=== PATIENT | female | born 1975 | race Two or more races ===

== ENCOUNTER 2018-03-23 17:28 | Emergency (ER) | payer MEDICAID, OTHER ==
[~2018-03-23] VITALS: Ht 157.5 cm; Wt 95.3 kg
[2018-03-23 17:30] VITALS: BP 123/73
[2018-03-23 18:24] LABS: Basophils # (auto) 0.1 uL; Basophils % (auto) 1.1 % (0.0-2.0); Eosinophils # (auto) 0.1 uL; Eosinophils % (auto) 1.3 % (0.0-7.0); Hematocrit 35.8 % (36.0-46.0); Hemoglobin 12.1 g/dL (12.2-16.2); Lymphocytes # (auto) 1.4 uL; Lymphocytes % (auto) 22.1 % (10.0-50.0); Mean Corpuscular Hemoglobin 28.9 pg (28.0-32.0); Mean Corpuscular Hgb Conc. 33.7 g/dL (32.0-36.0); Mean Corpuscular Volume 85.9 fL (80.0-100.0); Monocytes # (auto) 0.6 uL; Monocytes % (auto) 9.5 % (0.0-12.0); Platelet Count (auto) 378 10^3/uL (140-450); Red Blood Cells 4.17 10^6/uL (4.0-5.20); Red Cell Distribution Width 15.1 % (11.8-14.3); White Blood Cell 6.1 10^3/uL (4.4-10.8)
[2018-03-23 18:41] LABS: Urine Amorphous Crystal MANY /hpf (None Seen); Urine Bacteria NONE SEEN /hpf (None Seen); Urine Blood Negative /uL (Negative); Urine Mucus FEW (None Seen); Urine Specific Gravity 1.017 (1.001-1.035)
[2018-03-23 18:43] LABS: Urine WBC 1 /hpf (0 - 5)
[2018-03-23 18:47] LABS: Albumin 3.8 g/dL (3.4-5.0); BUN/Creatinine Ratio 21.3; Bilirubin, Total 0.2 mg/dL (0.2-1.0); Calcium 8.5 mg/dL (8.5-10.1)
[2018-03-23 18:50] LABS: Potassium 2.7 mmol/L (3.5-5.1)
[2018-03-23 18:54] LABS: Alcohol, Urine < 3.0 mg/dL (0-5); Amphetamine Screen, Urine POSITIVE (NEGATIVE); Barbiturate Scree,Urine NEGATIVE (NEGATIVE); Benzodiazephine Screen, Urine NEGATIVE (NEGATIVE); Cannabinoid Screen, Urine POSITIVE (NEGATIVE); Cocaine Screen, Urine NEGATIVE (NEGATIVE); Opiate Scree,Urine NEGATIVE (NEGATIVE); Phencyclidine Screen, Urine NEGATIVE (NEGATIVE)
== END 2018-03-23 21:00 | disposition left against medical advice (07) ==
LOC: ER 17:28
DX: R53.1 Weakness (principal); Z53.21 Procedure and treatment not carried out due to patient leaving prior to being seen by health care provider
CPT/HCPCS: 36415; 80053; 80307; 81001; 81025; 85025; 93005

== ENCOUNTER 2019-07-04 16:01 | Inpatient (IN) | payer MEDICAID ==
[~2019-07-04] VITALS: Ht 157.5 cm; Wt 102.7 kg
[2019-07-04] MEDS ORDERED: SODIUM CHLORIDE 0.9% 1,000 ML IVB ONE (17:05)
[2019-07-04 17:34] LABS: Basophils # (auto) 0 uL; Basophils % (auto) 0.8 % (0.0-2.0); Eosinophils # (auto) 0.1 uL; Mean Corpuscular Volume 72.1 fL (80.0-100.0); Monocytes # (auto) 0.6 uL
[2019-07-04 17:36] LABS: Hematocrit 29.1 % (36.0-46.0); Hemoglobin 9.1 g/dL (12.2-16.2); Lymphocytes # (auto) 1.2 uL; Mean Corpuscular Hemoglobin 22.6 pg (28.0-32.0); Mean Corpuscular Hgb Conc. 31.3 g/dL (32.0-36.0); Neutrophils % (auto) 60.2 % (37.0-80.0); Nucleated Red Blood Cells % 0.1 %; Platelet Count (auto) 340 10^3/uL (140-450); Red Blood Cells 4.03 10^6/uL (4.0-5.20); Red Cell Distribution Width 18.1 % (11.8-14.3)
[2019-07-04 18:00] LABS: Alcohol, Urine < 3.0 mg/dL (0-5); Amphetamine Screen, Urine NEGATIVE (NEGATIVE); Barbiturate Scree,Urine NEGATIVE (NEGATIVE); Benzodiazephine Screen, Urine NEGATIVE (NEGATIVE); Cannabinoid Screen, Urine NEGATIVE (NEGATIVE); Cocaine Screen, Urine NEGATIVE (NEGATIVE); Opiate Scree,Urine NEGATIVE (NEGATIVE); Phencyclidine Screen, Urine NEGATIVE (NEGATIVE)
[2019-07-04 18:09] LABS: Albumin 3.7 g/dL (3.4-5.0); Anion Gap 7 (5-15); BUN/Creatinine Ratio 26.5; Blood Alcohol < 3.0 mg/dL (0-5); Blood Urea Nitrogen 18 mg/dL (7-18); Calcium 8.4 mg/dL (8.5-10.1); Carbon Dioxide 25 mmol/L (21-32); Chloride 108 mmol/L (98-107); GFR African American 120 mL/min; GFR Non-African American 99 mL/min; Glucose 95 mg/dL (74-106); Magnesium 2.2 mg/dL (1.6-2.6); Potassium 4.1 mmol/L (3.5-5.1); Sodium 140 mmol/L (136-145)
[2019-07-04 18:12] LABS: Alanine Aminotransferase 15 U/L (13-56); Alkaline Phosphatase 51 U/L (45-117); Aspartate Aminotransferase 10 U/L (15-37); Bilirubin, Total 0.2 mg/dL (0.2-1.0)
[2019-07-04 18:16] LABS: Urine Pregnacy Test Negative (Negative)
[2019-07-04] MEDS ORDERED: ACETAMINOPHEN 325 MG TAB PO ONE (19:45)
[2019-07-04] MEDS ORDERED: LEVETIRACETAM 500 MG TAB PO ONE (20:00)
[2019-07-04] MEDS ORDERED: ACETAMINOPHEN 325 MG TAB PO PRN (22:00)
[2019-07-04] MEDS ORDERED: ONDANSETRON HCL 4 MG/2 ML VIAL IV PRN (22:00)
[2019-07-04] MEDS ORDERED: DOCUSATE SOD 100 MG CAP PO PRN (22:00)
[2019-07-04] MEDS ORDERED: LORazepam 0.5 MG TAB PO PRN (22:00)
[2019-07-04] MEDS ORDERED: LEVETIRACETAM 500 MG/5ML INJ IV ONE (22:21)
[2019-07-04] MEDS: LEVETIRACETAM INJ 500 MG in D5W 5% 100 ML IV SCH (22:26)
[2019-07-05] VITALS (7 sets, daily range): BP systolic 104–144; BP diastolic 69–82
--- NOTE | 2019-07-05 00:20 | NUR ---
MS admit from ER ARCHIE RICHARDS admitted to MS unit. Patient oriented to Marleen Ramires RN primary RN, unit, room, bed, and unit policies regarding patient care and visiting hours. Patient weighed by bedscale and encouraged to call if they need something. All questions and concerns addressed, patient verbalized understanding. Pt alert x4, ambulatory, fall precautions and seizure precautions in place. No sob on room air, skin intact Note:
[2019-07-05] MEDS: HYDROcodone-ACET 5/325MG TAB PO PRN ×2 (00:54→21:06)
--- NOTE | 2019-07-05 00:54 | NUR ---
Pain Management Pt medicated for c/o right knee pain. Will continue to monitor
[2019-07-05] MEDS ORDERED: TRAZ100T2 PO (01:14)
[2019-07-05] MEDS ORDERED: TOPI50TA53 PO (01:14)
[2019-07-05] MEDS ORDERED: IBUP800T24 PO (01:14)
[2019-07-05] MEDS ORDERED: LEVE500T22 PO ×2 (01:14→23:08)
[2019-07-05] MEDS ORDERED: MELO1TAB56 PO (01:14)
--- NOTE | 2019-07-05 06:35 | NUR ---
Pt own meds taken down to pharmacy
--- NOTE | 2019-07-05 06:50 | NUR ---
Rounds Patient awake and alert x4. No S/S of distress/SOB or pain. Pt ambulated to restroom gait even and steady, encouraged to call for restroom assistance prn. Call light within reach
[2019-07-05 07:12] LABS: Basophils # (auto) 0 uL; Eosinophils # (auto) 0.1 uL; Hemoglobin 8.3 g/dL (12.2-16.2); Monocytes # (auto) 0.6 uL; Nucleated Red Blood Cells % 0.1 %
[2019-07-05 07:14] LABS: Basophils % (auto) 0.8 % (0.0-2.0); Eosinophils % (auto) 3.1 % (0.0-7.0); Hematocrit 26.6 % (36.0-46.0); Lymphocytes # (auto) 1.4 uL; Lymphocytes % (auto) 33.8 % (10.0-50.0); Mean Corpuscular Hemoglobin 22.4 pg (28.0-32.0); Mean Corpuscular Hgb Conc. 31.3 g/dL (32.0-36.0); Mean Corpuscular Volume 71.7 fL (80.0-100.0); Monocytes % (auto) 13.8 % (0.0-12.0); Neutrophils # (auto) 1.9 uL; Neutrophils % (auto) 48.5 % (37.0-80.0); Platelet Count (auto) 303 10^3/uL (140-450); Red Blood Cells 3.71 10^6/uL (4.0-5.20); Red Cell Distribution Width 17.8 % (11.8-14.3)
[2019-07-05 07:36] LABS: Potassium 4.1 mmol/L (3.5-5.1)
[2019-07-05 07:38] LABS: BUN/Creatinine Ratio 23.5
--- NOTE | 2019-07-05 07:50 | NUR ---
Opening Shift Note Assumed care of patient, awake and alert, sitting up in bed. No S/S of distress/SOB or pain. Instructed on POC and to call for assist PRN, will continue to monitor for changes Q1hr and PRN. Patient complained of being extremely hungry, apple juice and crackers given. Informed her that breakfast will be served in a few minutes.
[2019-07-05] MEDS: LEVETIRACETAM INJ 500 MG in D5W 5% 100 ML IV SCH ×2 (10:05→21:02)
[2019-07-05] MEDS ORDERED: traZODone HCL 50 MG TAB PO SCH (18:00)
--- NOTE | 2019-07-05 21:06 | NUR ---
Rounds Patient awake and alert x4, ambulatory. No S/S of distress/SOB on room air, c/o right knee pain, medicated as ordered. Will continue to monitor changes q1hr and PRN.
[2019-07-05] MEDS ORDERED: ESCI20TA51 (23:00)
[2019-07-05] MEDS ORDERED: TRAZ50TA2 PO (23:04)
[2019-07-05] MEDS ORDERED: ESCI20TA PO (23:14)
--- NOTE | 2019-07-05 23:15 | NUR ---
Rounds Patient walking to station, upset she spoke to Dr.L Hancock, this nurse not present. States rude to her and questioned her regarding her homeless status, felt offended. Will notify [facility]. Order received for d/c tomorrow after clearance from [facility] after neuro consult complete and clinical social work aide consult.
[2019-07-06] MEDS: HYDROcodone-ACET 5/325MG TAB PO PRN ×2 (02:41→10:08)
--- NOTE | 2019-07-06 02:41 | NUR ---
Rounds Patient awake and alert x4. No S/S of distress/SOB, medicated for knee pain. Will continue to monitor changes q1hr and PRN.
[2019-07-06 05:00] VITALS: BP 146/91
--- NOTE | 2019-07-06 07:30 | NUR ---
Opening Note Assumed pt care from [facility] nurse. Pt is a/ox4 with no s/s of distress or SOB. PT is currently sitting at the edge of her bed with no complaints at this time. Discussed POC with pt; pending neuro consultation and possible d/c; pt verbalized understanding. Safety measures maintained with call light within reach, bed in lowest position, side rails up, and seizure precautions maintained. Will continue to monitor for changes q1hr and prn.
--- NOTE | 2019-07-06 08:40 | NUR ---
Dr Martel at Bedside
--- NOTE | 2019-07-06 09:11 | NUR ---
Okay to D/C from Neuro Standpoint Per [facility], pt is able to d/c. Will implement existing d/c orders and await s/s consultation.
[2019-07-06 09:22] VITALS: BP 132/73
[2019-07-06] MEDS ORDERED: TOPIRAMATE 25 MG TAB PO SCH (10:00)
[2019-07-06] MEDS ORDERED: ESCITALOPRAM 20 MG PO SCH (10:00)
--- NOTE | 2019-07-06 11:00 | NUR ---
assessment Patient is a 43 year old female who is alert and oriented. Prior to admission patient resided at the [facility]. Per patient they are holding her bed and she will return on discharge. Patients PCP is the [facility]. Patient has a cane for home use. Patient has no post discharge needs at this time. I informed patient she has a right to speak to a psychiatric social worker regarding all care. I informed patient she has a right to participate in any and all discharge planning. Patient does not have a POA and advanced directive. I have offered patient information on POA and advanced directives. I informed the patient the advantages and benefits of having an Advanced Directive. Patient verbalized understanding and agreed to discharge plan. Addendum: 07/06/19 at 1626 by Sarah SANDS Amended: Links added.
--- NOTE | 2019-07-06 11:31 | NUR ---
[employer] Provided Material to Pt Homeless information provided to patient. Taxi voucher given to pt for d/c. Will follow through with d/c.
[2019-07-06 11:32] VITALS: BP 132/73
--- NOTE | 2019-07-06 12:47 | NUR ---
Received referral for Social Service Consult for pt who is homeless. Pt states she is not homeless but rather has a bed at the [facility]. Pt will be given trans back to the group home.
--- NOTE | 2019-07-06 12:55 | NUR ---
SPOKE WITH [employer] TAPE LIBRARIAN STATED THAT HE WAS ON HIS WAY. WILL NOTIFY PATIENT.
--- NOTE | 2019-07-06 13:00 | NUR ---
IV D/C'ed IV from pt's R hand removed fully intact. Site is asymptomatic and pressure was applied to site for 3 minutes with gauze. Dressing was wrapped in coban and pt was instructed to keep dressing on for 30 minutes; pt verbalized understanding. Pt tolerated removal well.
--- NOTE | 2019-07-06 13:25 | NUR ---
PT D/C'ED OFF UNIT PT LEFT UNIT VIA WHEELCHAIR. PT TOOK ALL BELONGINGS, EDUCATION MATERIAL, PRESCRIPTIONS AND ALL QUESTIONS WERE ANSWERED. IV WAS D/C'ED. PT UTILIZED [employer] SERVICE.
[2019-07-06] MEDS ORDERED: TOPI25TA84 PO (23:19)
== END 2019-07-06 13:46 | disposition home or self-care (01) | DRG 53 ==
LOC: EDBD 16:01 → ER 16:01 → OVERFLOW 16:02 → EAST 23:06
PROVIDERS: ADMIT Hospitalist; ATTEND Internal Medicine
DX: G40.909 Epilepsy, unspecified, not intractable, without status epilepticus (principal); E66.01 Morbid (severe) obesity due to excess calories; F17.200 Nicotine dependence, unspecified, uncomplicated; D50.9 Iron deficiency anemia, unspecified; F32.9 Major depressive disorder, single episode, unspecified; F41.8 Other specified anxiety disorders; G43.909 Migraine, unspecified, not intractable, without status migrainosus; I10 Essential (primary) hypertension; F43.10 Post-traumatic stress disorder, unspecified; G43.109 Migraine with aura, not intractable, without status migrainosus; G43.B0 Ophthalmoplegic migraine, not intractable; Z59.0 Homelessness; Z68.41 Body mass index [BMI] 40.0-44.9, adult; Z88.0 Allergy status to penicillin; Z79.899 Other long term (current) drug therapy; Z81.8 Family history of other mental and behavioral disorders; Z82.3 Family history of stroke; Z91.410 Personal history of adult physical and sexual abuse; M19.90 Unspecified osteoarthritis, unspecified site
CPT/HCPCS: 36415; 70450; 71045; 80048; 80053; 80307; 80320; 81025; 82962; 83735; 85025; 93005; 96360; G0378; J7060

== ENCOUNTER 2019-07-13 16:43 | Emergency (ER) | payer MEDICAID ==
[~2019-07-13] VITALS: Ht 157.5 cm; Wt 114.3 kg
[~2019-07-13 16:43] MED LIST: ESCI20TA PO; MELO1TAB56 PO; TOPI25TA84 PO; TRAZ100T2 PO
[2019-07-13] MEDS ORDERED: SODIUM CHLORIDE 0.9% 1,000 ML IV ONE (17:11)
[2019-07-13] MEDS ORDERED: LORazepam 2MG/ML-1ML VIAL IV ONE (17:15)
[2019-07-13 17:36] VITALS: BP 155/90
[2019-07-13 18:14] LABS: Basophils # (auto) 0 uL; Monocytes # (auto) 0.5 uL; Nucleated Red Blood Cells % 0.1 %; White Blood Cell 4.3 10^3/uL (4.4-10.8)
[2019-07-13 18:20] LABS: Eosinophils # (auto) 0 uL; Eosinophils % (auto) 0.9 % (0.0-7.0); Hematocrit 27.6 % (36.0-46.0); Hemoglobin 8.6 g/dL (12.2-16.2); Lymphocytes % (auto) 22.3 % (10.0-50.0); Mean Corpuscular Hemoglobin 22.4 pg (28.0-32.0); Mean Corpuscular Hgb Conc. 31.2 g/dL (32.0-36.0); Mean Corpuscular Volume 71.9 fL (80.0-100.0); Monocytes % (auto) 12.4 % (0.0-12.0); Neutrophils # (auto) 2.7 uL; Neutrophils % (auto) 63.4 % (37.0-80.0); Platelet Count (auto) 294 10^3/uL (140-450); Red Blood Cells 3.84 10^6/uL (4.0-5.20); Red Cell Distribution Width 18.6 % (11.8-14.3)
[2019-07-13 18:36] LABS: Albumin 3.6 g/dL (3.4-5.0); BUN/Creatinine Ratio 23.6; Calcium 8.1 mg/dL (8.5-10.1); Potassium 3.8 mmol/L (3.5-5.1)
[2019-07-13 18:39] LABS: Bilirubin, Total 0.1 mg/dL (0.2-1.0); Total Protein 6.9 g/dL (6.4-8.2)
[2019-07-13] MEDS ORDERED: LORazepam 0.5 MG TAB PO ONE ×2 (20:45)
[2019-07-14 00:10] LABS: Urine Bacteria FEW /hpf (None Seen); Urine Blood Negative /uL (Negative); Urine Specific Gravity 1.018 (1.001-1.035); Urine WBC 2 /hpf (0 - 5)
== END 2019-07-13 20:59 | disposition home or self-care (01) ==
LOC: EDBD 16:43 → ER 16:45
DX: G40.909 Epilepsy, unspecified, not intractable, without status epilepticus (principal); F41.9 Anxiety disorder, unspecified; I10 Essential (primary) hypertension; F15.10 Other stimulant abuse, uncomplicated; R11.2 Nausea with vomiting, unspecified; Z88.0 Allergy status to penicillin
CPT/HCPCS: 36415; 80053; 81001; 85025; 96360; 99283; J7030

== ENCOUNTER 2019-07-31 16:17 | Emergency (ER) | payer MEDICAID ==
[~2019-07-31] VITALS: Ht 157.5 cm; Wt 114.3 kg
[~2019-07-31 16:17] MED LIST changes: -TRAZ100T2 PO; +TRAZ100T3 PO
[2019-07-31 16:36] VITALS: BP 136/68
[2019-07-31] MEDS ORDERED: KETOROLAC TROMETH 60MG/2ML VIAL IM ONE (18:15)
== END 2019-07-31 18:31 | disposition home or self-care (01) ==
LOC: ER 16:17
DX: S83.91XA Sprain of unspecified site of right knee, initial encounter (principal); M17.11 Unilateral primary osteoarthritis, right knee; I10 Essential (primary) hypertension; Z88.0 Allergy status to penicillin; W19.XXXA Unspecified fall, initial encounter; Y93.89 Activity, other specified; Y92.89 Other specified places as the place of occurrence of the external cause; Y99.8 Other external cause status
CPT/HCPCS: 73562; 96372; 99283; J1885

== ENCOUNTER 2020-04-08 00:09 | Emergency (ER) | payer MEDICAID ==
[~2020-04-08] VITALS: Ht 154.9 cm; Wt 127.0 kg
[2020-04-08 03:46] LABS: Basophils # (auto) 0.1 10 ^3/uL (0-0.2); Basophils % (auto) 1.1 % (0.0-2.0); Eosinophils # (auto) 0.1 10 ^3/uL (0-0.8); Eosinophils % (auto) 2.6 % (0.0-7.0); Lymphocytes # (auto) 1.2 10 ^3/uL (0.4-5.4); Monocytes # (auto) 0.5 10 ^3/uL (0-1.3); Red Cell Distribution Width 16.2 % (11.8-14.3)
[2020-04-08 03:48] LABS: Hematocrit 34.5 % (36.0-46.0); Lymphocytes % (auto) 25.7 % (10.0-50.0); Mean Corpuscular Hemoglobin 26.1 pg (28.0-32.0); Mean Corpuscular Hgb Conc. 31.7 g/dL (32.0-36.0); Mean Corpuscular Volume 82.3 fL (80.0-100.0); Monocytes % (auto) 10.1 % (0.0-12.0); Neutrophils # (auto) 2.9 10 ^3/uL (1.6-8.6); Neutrophils % (auto) 60.5 % (37.0-80.0); Platelet Count (auto) 341 10^3/uL (140-450); Red Blood Cells 4.19 10^6/uL (4.0-5.20); White Blood Cell 4.8 10^3/uL (4.4-10.8)
[2020-04-08 03:55] LABS: Alanine Aminotransferase 12 U/L (13-56); Albumin 3.2 g/dL (3.4-5.0); Anion Gap 5 (5-15); Aspartate Aminotransferase 6 U/L (15-37); BUN/Creatinine Ratio 36.2; Blood Urea Nitrogen 17 mg/dL (7-18); Calcium 8.1 mg/dL (8.5-10.1); Carbon Dioxide 28 mmol/L (21-32); Chloride 103 mmol/L (98-107); GFR African American 183 mL/min; GFR Non-African American 152 mL/min; Glucose 82 mg/dL (74-106); Potassium 3.7 mmol/L (3.5-5.1); Sodium 136 mmol/L (136-145)
[2020-04-08 04:01] LABS: Alkaline Phosphatase 62 U/L (45-117); Bilirubin, Total 0.2 mg/dL (0.2-1.0); Total Protein 6.6 g/dL (6.4-8.2)
[2020-04-08 04:21] LABS: INR 0.92 (0.9-1.15); Partial Thromboplastin Time 27.8 sec (23.0-31.2)
[2020-04-08] MEDS ORDERED: HYDROcodone-ACET 10/325MG TAB PO ONE (04:30)
[2020-04-08 05:01] VITALS: BP 112/53
== END 2020-04-08 05:50 | disposition home or self-care (01) ==
LOC: ER 00:09
DX: G89.4 Chronic pain syndrome (principal); R05 Cough; R06.02 Shortness of breath; R50.9 Fever, unspecified
CPT/HCPCS: 36415; 71045; 80053; 83735; 83880; 84443; 84484; 85025; 85379; 85610; 85730

== ENCOUNTER 2022-01-20 19:08 | Inpatient (IN) | payer MEDICAID ==
[~2022-01-20] VITALS: Ht 157.5 cm; Wt 111.3 kg
[2022-01-20] MEDS ORDERED: SODIUM CHLORIDE 0.9% 1,000 ML IV ONE (23:45)
[2022-01-21] MEDS ORDERED: GABAPENTIN 300 MG CAP PO ONE
[2022-01-21] MEDS ORDERED: levETIRAcetam 500 MG/5ML INJ IV ONE (00:45)
[2022-01-21 01:21] LABS: Basophils # (auto) 0 10 ^3/uL (0-0.2); Eosinophils # (auto) 0.1 10 ^3/uL (0-0.8); Lymphocytes # (auto) 1.1 10 ^3/uL (0.4-5.4); Monocytes # (auto) 0.4 10 ^3/uL (0-1.3); Neutrophils # (auto) 2.4 10 ^3/uL (1.6-8.6)
[2022-01-21 01:22] LABS: Basophils % (auto) 0.8 % (0.0-2.0); Hematocrit 30.9 % (36.0-46.0); Lymphocytes % (auto) 27.4 % (10.0-50.0); Mean Corpuscular Hemoglobin 25.9 pg (28.0-32.0); Mean Corpuscular Hgb Conc. 32.4 g/dL (32.0-36.0); Mean Corpuscular Volume 79.9 fL (80.0-100.0); Monocytes % (auto) 10.7 % (0.0-12.0); Neutrophils % (auto) 59.1 % (37.0-80.0); Red Blood Cells 3.87 10^6/uL (4.0-5.20); Red Cell Distribution Width 18.1 % (11.8-14.3)
[2022-01-21 01:24] LABS: INR 1.02 (0.9-1.15); Partial Thromboplastin Time 28.8 sec (23.6-33.0)
[2022-01-21 02:46] LABS: Albumin 3.3 g/dL (3.4-5.0); Anion Gap 5 (5-15); BUN/Creatinine Ratio 47.7; Blood Alcohol < 3.0 mg/dL (0-5); Blood Urea Nitrogen 21 mg/dL (7-18); Calcium 8.3 mg/dL (8.5-10.1); Carbon Dioxide 28 mmol/L (21-32); Chloride 109 mmol/L (98-107); GFR African American 196 mL/min; GFR Non-African American 162 mL/min; Glucose 106 mg/dL (74-106); Potassium 3.1 mmol/L (3.5-5.1); Sodium 142 mmol/L (136-145)
[2022-01-21 02:51] LABS: Alanine Aminotransferase 17 U/L (13-56); Alkaline Phosphatase 50 U/L (45-117); Aspartate Aminotransferase 9 U/L (15-37); Bilirubin, Total 0.2 mg/dL (0.2-1.0); Total Protein 6.1 g/dL (6.4-8.2)
[2022-01-21] MEDS ORDERED: HYDROcodone-ACET 5/325MG TAB PO PRN (03:30)
[2022-01-21] MEDS ORDERED: ACETAMINOPHEN 325 MG TAB PO PRN (03:30)
[2022-01-21] MEDS ORDERED: ONDANSETRON HCL 4 MG/2 ML VIAL IV PRN (03:30)
[2022-01-21] MEDS ORDERED: MORPHINE SULFATE INJ 2 MG/ml SYRG IV PRN (04:15)
[2022-01-21] MEDS ORDERED: NITROGLYCERIN 0.4 MG SL TAB SL PRN (04:15)
[2022-01-21] MEDS: POTASSIUM CHL 20MEQ/100ML 100 ML IV SCH ×2 (04:54→08:20)
[2022-01-21] MEDS: SODIUM CHLOR 0.9% PF (SALINE LOCK) 10ML VIAL/SYR IV SCH ×3 (08:21→22:43)
[2022-01-21] MEDS ORDERED: POTASSIUM EFFERVESENT TAB 25 MEQ PO ONE (08:30)
[2022-01-21] MEDS: ENOXAPARIN SOD 40 MG/0.4 ML SYRINGE SC SCH (09:42)
[2022-01-21] MEDS: GABAPENTIN 300 MG CAP PO SCH ×3 (10:12→22:41)
[2022-01-21 10:49] LABS: Hemoglobin 10.4 g/dL (12.2-16.2); White Blood Cell 4.4 10^3/uL (4.4-10.8)
[2022-01-21 10:51] LABS: Basophils # (auto) 0.1 10 ^3/uL (0-0.2); Basophils % (auto) 1.9 % (0.0-2.0); Eosinophils # (auto) 0 10 ^3/uL (0-0.8); Eosinophils % (auto) 0.9 % (0.0-7.0); Hematocrit 31.2 % (36.0-46.0); Lymphocytes # (auto) 0.8 10 ^3/uL (0.4-5.4); Mean Corpuscular Hemoglobin 26.2 pg (28.0-32.0); Mean Corpuscular Hgb Conc. 33.2 g/dL (32.0-36.0); Monocytes # (auto) 0.3 10 ^3/uL (0-1.3); Monocytes % (auto) 7.7 % (0.0-12.0); Neutrophils # (auto) 3.1 10 ^3/uL (1.6-8.6); Neutrophils % (auto) 71.5 % (37.0-80.0); Red Blood Cells 3.95 10^6/uL (4.0-5.20); Red Cell Distribution Width 18.5 % (11.8-14.3)
[2022-01-21 10:57] LABS: Albumin 3.2 g/dL (3.4-5.0); Calcium 8.2 mg/dL (8.5-10.1); Potassium 3.4 mmol/L (3.5-5.1)
[2022-01-21 11:02] LABS: BUN/Creatinine Ratio 34.1; Bilirubin, Total 0.3 mg/dL (0.2-1.0); Total Protein 6.1 g/dL (6.4-8.2)
[2022-01-21 16:14] LABS: Urine Bacteria NONE SEEN /hpf (None Seen); Urine Blood TRACE /uL (Negative); Urine Specific Gravity 1.012 (1.001-1.035); Urine WBC <1 /hpf (0 - 5)
[2022-01-21 16:31] LABS: Amphetamine Screen, Urine POSITIVE (NEGATIVE); Barbiturate Scree,Urine NEGATIVE (NEGATIVE); Benzodiazephine Screen, Urine NEGATIVE (NEGATIVE); Cannabinoid Screen, Urine POSITIVE (NEGATIVE); Cocaine Screen, Urine NEGATIVE (NEGATIVE); Phencyclidine Screen, Urine NEGATIVE (NEGATIVE)
[2022-01-21 16:39] LABS: Opiate Scree,Urine NEGATIVE (NEGATIVE)
[2022-01-21 16:46] LABS: Alcohol, Urine < 3.0 mg/dL (0-10)
[2022-01-21] MEDS ORDERED: LORazepam 2MG/ML-1ML VIAL IV PRN (21:45)
[2022-01-21] MEDS ORDERED: LEVE500T3 PO (21:55)
[2022-01-21] MEDS ORDERED: levETIRAcetam 500 MG TAB PO SCH (22:00)
[2022-01-21] MEDS ORDERED: GABA-339 PO (22:21)
[2022-01-21] MEDS ORDERED: IBUP800T27 PO (22:21)
[2022-01-21] MEDS ORDERED: HYDR-4902 PO (22:21)
[2022-01-22] MEDS ORDERED: PNEUMOCOCCAL VACC POLYS 25 MCG/0.5 ML VIAL IM ONE
[2022-01-22 00:37] VITALS: BP 145/90
[2022-01-22] MEDS: HYDROcodone-ACET 10/325MG TAB PO PRN ×2 (00:41→18:58)
[2022-01-22] MEDS ORDERED: FURO40TA4 PO (03:30)
[2022-01-22] MEDS ORDERED: FLUT0.05 NAS (03:30)
[2022-01-22] MEDS ORDERED: POTA-220 PO (03:30)
[2022-01-22] MEDS ORDERED: FLUO20CA90 PO (03:30)
[2022-01-22] MEDS ORDERED: ONDA-144 PO (03:30)
[2022-01-22 04:48] VITALS: BP 148/82
[2022-01-22 05:43] LABS: Basophils # (auto) 0.1 10 ^3/uL (0-0.2); Basophils % (auto) 2.6 % (0.0-2.0); Eosinophils # (auto) 0.1 10 ^3/uL (0-0.8); Eosinophils % (auto) 1.6 % (0.0-7.0); Hemoglobin 10.7 g/dL (12.2-16.2); Lymphocytes # (auto) 1.1 10 ^3/uL (0.4-5.4); Lymphocytes % (auto) 21.9 % (10.0-50.0); Mean Corpuscular Hemoglobin 27.2 pg (28.0-32.0); Mean Corpuscular Hgb Conc. 34.5 g/dL (32.0-36.0); Mean Corpuscular Volume 79.1 fL (80.0-100.0); Monocytes # (auto) 0.4 10 ^3/uL (0-1.3); Monocytes % (auto) 7.3 % (0.0-12.0); Neutrophils # (auto) 3.3 10 ^3/uL (1.6-8.6); Neutrophils % (auto) 66.6 % (37.0-80.0); Nucleated Red Blood Cells % 0.1 %; Red Blood Cells 3.92 10^6/uL (4.0-5.20); Red Cell Distribution Width 18.3 % (11.8-14.3)
[2022-01-22 05:53] LABS: Potassium 3.8 mmol/L (3.5-5.1)
[2022-01-22 06:07] LABS: Albumin 3.3 g/dL (3.4-5.0); BUN/Creatinine Ratio 25.5; Bilirubin, Total 0.3 mg/dL (0.2-1.0); Calcium 8.6 mg/dL (8.5-10.1); Total Protein 6.2 g/dL (6.4-8.2)
[2022-01-22] MEDS: SODIUM CHLOR 0.9% PF (SALINE LOCK) 10ML VIAL/SYR IV SCH ×3 (06:09→22:31)
[2022-01-22] MEDS: GABAPENTIN 300 MG CAP PO SCH ×3 (06:16→22:32)
[2022-01-22 09:00] VITALS: BP 127/79
[2022-01-22] MEDS: ENOXAPARIN SOD 40 MG/0.4 ML SYRINGE SC SCH (09:32)
[2022-01-22] MEDS ORDERED: levETIRAcetam 500 MG TAB PO SCH (10:00)
[2022-01-22 13:00] VITALS: BP 133/68
[2022-01-22 17:00] VITALS: BP 129/71
[2022-01-22 21:44] VITALS: BP 134/82
[2022-01-22] MEDS: levETIRAcetam 500 MG TAB PO SCH (22:32)
[2022-01-23 04:51] VITALS: BP 140/87
[2022-01-23] MEDS: SODIUM CHLOR 0.9% PF (SALINE LOCK) 10ML VIAL/SYR IV SCH ×3 (05:12→22:00)
[2022-01-23] MEDS: GABAPENTIN 300 MG CAP PO SCH ×3 (05:13→21:09)
[2022-01-23 09:20] VITALS: BP 133/70
[2022-01-23] MEDS: levETIRAcetam 500 MG TAB PO SCH ×2 (11:15→21:09)
[2022-01-23] MEDS: ENOXAPARIN SOD 40 MG/0.4 ML SYRINGE SC SCH (11:15)
[2022-01-23] MEDS: HYDROcodone-ACET 10/325MG TAB PO PRN ×2 (11:53→17:47)
[2022-01-23 13:00] VITALS: BP 125/84
[2022-01-23 18:07] VITALS: BP 126/77
[2022-01-23] MEDS: AMITRIPTYLINE HCL 25 MG TAB PO SCH (21:10)
[2022-01-23 21:45] VITALS: BP 122/76
[2022-01-24] MEDS: HYDROcodone-ACET 10/325MG TAB PO PRN ×3 (03:24→17:37)
[2022-01-24 05:00] VITALS: BP 128/66
[2022-01-24] MEDS: GABAPENTIN 300 MG CAP PO SCH ×3 (06:14→21:20)
[2022-01-24] MEDS: SODIUM CHLOR 0.9% PF (SALINE LOCK) 10ML VIAL/SYR IV SCH ×3 (06:15→21:19)
[2022-01-24] MEDS: ENOXAPARIN SOD 40 MG/0.4 ML SYRINGE SC SCH (09:34)
[2022-01-24] MEDS: levETIRAcetam 500 MG TAB PO SCH ×2 (09:34→21:20)
[2022-01-24 09:53] VITALS: BP 111/62
[2022-01-24 12:48] VITALS: BP 126/68
[2022-01-24 17:30] VITALS: BP 121/62
[2022-01-24 18:36] LABS: BUN/Creatinine Ratio 46.8; Calcium 8.6 mg/dL (8.5-10.1); Magnesium 2.6 mg/dL (1.6-2.6); Potassium 4.2 mmol/L (3.5-5.1)
[2022-01-24] MEDS: AMITRIPTYLINE HCL 25 MG TAB PO SCH (21:19)
[2022-01-24 22:00] VITALS: BP 123/72
[2022-01-25] MEDS: HYDROcodone-ACET 10/325MG TAB PO PRN ×4 (02:24→23:58)
[2022-01-25 05:00] VITALS: BP 110/56
[2022-01-25] MEDS: SODIUM CHLOR 0.9% PF (SALINE LOCK) 10ML VIAL/SYR IV SCH ×3 (05:34→22:18)
[2022-01-25] MEDS: GABAPENTIN 300 MG CAP PO SCH ×3 (05:34→22:19)
[2022-01-25] MEDS: levETIRAcetam 500 MG TAB PO SCH ×2 (09:37→22:19)
[2022-01-25] MEDS: ENOXAPARIN SOD 40 MG/0.4 ML SYRINGE SC SCH (09:37)
[2022-01-25 22:00] VITALS: BP 99/59
[2022-01-25] MEDS: AMITRIPTYLINE HCL 25 MG TAB PO SCH (22:18)
[2022-01-26 05:00] VITALS: BP 121/75
[2022-01-26] MEDS: SODIUM CHLOR 0.9% PF (SALINE LOCK) 10ML VIAL/SYR IV SCH ×3 (06:00→21:04)
[2022-01-26] MEDS: GABAPENTIN 300 MG CAP PO SCH ×3 (06:00→21:05)
[2022-01-26 09:00] VITALS: BP 124/78
[2022-01-26] MEDS: HYDROcodone-ACET 10/325MG TAB PO PRN ×2 (09:35→19:59)
[2022-01-26] MEDS: levETIRAcetam 500 MG TAB PO SCH ×2 (09:35→21:05)
[2022-01-26] MEDS: DOCUSATE SOD 100 MG CAP PO PRN (09:36)
[2022-01-26] MEDS: ENOXAPARIN SOD 40 MG/0.4 ML SYRINGE SC SCH (09:36)
[2022-01-26 13:00] VITALS: BP 119/64
[2022-01-26 17:00] VITALS: BP 121/76
[2022-01-26 20:38] VITALS: BP 119/75
[2022-01-26] MEDS: AMITRIPTYLINE HCL 25 MG TAB PO SCH (21:04)
[2022-01-27 04:13] VITALS: BP 123/81
[2022-01-27] MEDS: HYDROcodone-ACET 10/325MG TAB PO PRN ×3 (06:45→21:10)
[2022-01-27] MEDS: SODIUM CHLOR 0.9% PF (SALINE LOCK) 10ML VIAL/SYR IV SCH ×3 (06:46→22:00)
[2022-01-27] MEDS: GABAPENTIN 300 MG CAP PO SCH ×3 (06:46→21:11)
[2022-01-27 08:57] VITALS: BP 135/74
[2022-01-27] MEDS: DOCUSATE SOD 100 MG CAP PO PRN (09:05)
[2022-01-27] MEDS: ENOXAPARIN SOD 40 MG/0.4 ML SYRINGE SC SCH (09:05)
[2022-01-27] MEDS: levETIRAcetam 500 MG TAB PO SCH ×2 (09:05→21:11)
[2022-01-27 12:30] VITALS: BP 105/71
[2022-01-27 17:00] VITALS: BP 113/72
[2022-01-27] MEDS: AMITRIPTYLINE HCL 25 MG TAB PO SCH (21:11)
[2022-01-27 22:00] VITALS: BP 118/73
[2022-01-28] MEDS: HYDROcodone-ACET 10/325MG TAB PO PRN ×3 (04:45→20:21)
[2022-01-28 05:00] VITALS: BP 114/68
[2022-01-28] MEDS: GABAPENTIN 300 MG CAP PO SCH ×3 (05:50→23:06)
[2022-01-28] MEDS: SODIUM CHLOR 0.9% PF (SALINE LOCK) 10ML VIAL/SYR IV SCH ×3 (05:50→22:22)
[2022-01-28 05:53] LABS: Basophils # (auto) 0 10 ^3/uL (0-0.2); Basophils % (auto) 0.3 % (0.0-2.0); Eosinophils # (auto) 0.1 10 ^3/uL (0-0.8); Eosinophils % (auto) 1.3 % (0.0-7.0); Hematocrit 33.4 % (36.0-46.0); Lymphocytes # (auto) 0.7 10 ^3/uL (0.4-5.4); Lymphocytes % (auto) 14.8 % (10.0-50.0); Mean Corpuscular Hemoglobin 26.4 pg (28.0-32.0); Mean Corpuscular Hgb Conc. 32.8 g/dL (32.0-36.0); Mean Corpuscular Volume 80.5 fL (80.0-100.0); Monocytes # (auto) 0.4 10 ^3/uL (0-1.3); Monocytes % (auto) 9.3 % (0.0-12.0); Neutrophils # (auto) 3.5 10 ^3/uL (1.6-8.6); Neutrophils % (auto) 74.3 % (37.0-80.0); Red Blood Cells 4.15 10^6/uL (4.0-5.20); Red Cell Distribution Width 18.4 % (11.8-14.3); White Blood Cell 4.7 10^3/uL (4.4-10.8)
[2022-01-28 06:13] LABS: Potassium 4.4 mmol/L (3.5-5.1)
[2022-01-28 06:21] LABS: BUN/Creatinine Ratio 37.5; Calcium 8.3 mg/dL (8.5-10.1); Magnesium 2.3 mg/dL (1.6-2.6)
[2022-01-28 09:00] VITALS: BP 104/65
[2022-01-28] MEDS: levETIRAcetam 500 MG TAB PO SCH ×2 (10:00→23:06)
[2022-01-28] MEDS: ENOXAPARIN SOD 40 MG/0.4 ML SYRINGE SC SCH (10:00)
[2022-01-28 22:00] VITALS: BP 109/66
[2022-01-28] MEDS: AMITRIPTYLINE HCL 25 MG TAB PO SCH (22:00)
[2022-01-29] MEDS: HYDROcodone-ACET 10/325MG TAB PO PRN ×4 (03:51→21:05)
[2022-01-29 05:00] VITALS: BP 115/56
[2022-01-29] MEDS: SODIUM CHLOR 0.9% PF (SALINE LOCK) 10ML VIAL/SYR IV SCH ×3 (06:00→21:54)
[2022-01-29] MEDS: GABAPENTIN 300 MG CAP PO SCH ×3 (06:35→21:04)
[2022-01-29 08:13] VITALS: BP 121/64
[2022-01-29 08:30] VITALS: BP 121/64
[2022-01-29] MEDS: levETIRAcetam 500 MG TAB PO SCH ×2 (09:39→21:03)
[2022-01-29] MEDS: ENOXAPARIN SOD 40 MG/0.4 ML SYRINGE SC SCH (09:39)
[2022-01-29 12:18] VITALS: BP 112/66
[2022-01-29 16:53] VITALS: BP 123/64
[2022-01-29] MEDS: AMITRIPTYLINE HCL 25 MG TAB PO SCH (21:03)
[2022-01-29 22:00] VITALS: BP 119/75
[2022-01-30] MEDS: HYDROcodone-ACET 10/325MG TAB PO PRN ×2 (04:03→17:46)
[2022-01-30 05:00] VITALS: BP 150/80
[2022-01-30] MEDS: SODIUM CHLOR 0.9% PF (SALINE LOCK) 10ML VIAL/SYR IV SCH ×3 (05:07→22:00)
[2022-01-30] MEDS: GABAPENTIN 300 MG CAP PO SCH ×3 (05:44→22:18)
[2022-01-30 07:50] VITALS: BP 111/63
[2022-01-30 09:00] VITALS: BP 111/62
[2022-01-30] MEDS: levETIRAcetam 500 MG TAB PO SCH ×2 (09:59→22:18)
[2022-01-30] MEDS: ENOXAPARIN SOD 40 MG/0.4 ML SYRINGE SC SCH (09:59)
[2022-01-30 13:00] VITALS: BP 107/84
[2022-01-30 16:21] VITALS: BP 102/48
[2022-01-30 22:00] VITALS: BP 122/56
[2022-01-30] MEDS: AMITRIPTYLINE HCL 25 MG TAB PO SCH (22:18)
[2022-01-31] MEDS: HYDROcodone-ACET 10/325MG TAB PO PRN ×2 (03:42→16:06)
[2022-01-31 04:42] VITALS: BP 110/66
[2022-01-31] MEDS: SODIUM CHLOR 0.9% PF (SALINE LOCK) 10ML VIAL/SYR IV SCH ×3 (05:31→21:28)
[2022-01-31] MEDS: GABAPENTIN 300 MG CAP PO SCH ×3 (05:31→21:28)
[2022-01-31 08:30] VITALS: BP 100/63
[2022-01-31 09:00] VITALS: BP 100/63
[2022-01-31] MEDS: levETIRAcetam 500 MG TAB PO SCH ×2 (10:06→21:27)
[2022-01-31] MEDS: ENOXAPARIN SOD 40 MG/0.4 ML SYRINGE SC SCH (10:06)
[2022-01-31 13:00] VITALS: BP 107/64
[2022-01-31 20:00] VITALS: BP 117/71
[2022-01-31 21:05] VITALS: BP 117/71
[2022-01-31] MEDS: AMITRIPTYLINE HCL 25 MG TAB PO SCH (21:27)
[2022-01-31] MEDS: ACETAMINOPHEN 325 MG TAB PO PRN (23:41)
[2022-02-01 05:18] VITALS: BP 138/85
[2022-02-01] MEDS: GABAPENTIN 300 MG CAP PO SCH ×3 (05:33→21:36)
[2022-02-01] MEDS: SODIUM CHLOR 0.9% PF (SALINE LOCK) 10ML VIAL/SYR IV SCH ×3 (05:42→21:35)
[2022-02-01 08:40] VITALS: BP 102/51
[2022-02-01] MEDS: ENOXAPARIN SOD 40 MG/0.4 ML SYRINGE SC SCH (10:09)
[2022-02-01] MEDS: levETIRAcetam 500 MG TAB PO SCH ×2 (10:09→21:36)
[2022-02-01] MEDS: HYDROcodone-ACET 10/325MG TAB PO PRN (10:10)
[2022-02-01 13:00] VITALS: BP 115/49
[2022-02-01 17:00] VITALS: BP 111/67
[2022-02-01 20:00] VITALS: BP 114/53
[2022-02-01] MEDS: AMITRIPTYLINE HCL 25 MG TAB PO SCH (21:36)
[2022-02-01 22:00] VITALS: BP 114/53
[2022-02-02 04:30] VITALS: BP 108/68
[2022-02-02] MEDS: ACETAMINOPHEN 325 MG TAB PO PRN (05:17)
[2022-02-02] MEDS: SODIUM CHLOR 0.9% PF (SALINE LOCK) 10ML VIAL/SYR IV SCH ×3 (05:48→21:25)
[2022-02-02] MEDS: GABAPENTIN 300 MG CAP PO SCH ×3 (05:49→21:24)
[2022-02-02 08:57] VITALS: BP 112/58
[2022-02-02] MEDS: levETIRAcetam 500 MG TAB PO SCH ×2 (09:11→21:24)
[2022-02-02 12:13] VITALS: BP 119/59
[2022-02-02] MEDS: HYDROcodone-ACET 5/325MG TAB PO PRN (14:12)
[2022-02-02 16:43] VITALS: BP 123/77
[2022-02-02 20:00] VITALS: BP 105/57
[2022-02-02] MEDS: AMITRIPTYLINE HCL 25 MG TAB PO SCH (21:24)
[2022-02-02 22:26] VITALS: BP 105/57
[2022-02-03 05:00] VITALS: BP 117/64
[2022-02-03] MEDS: SODIUM CHLOR 0.9% PF (SALINE LOCK) 10ML VIAL/SYR IV SCH ×3 (06:00→21:53)
[2022-02-03] MEDS: GABAPENTIN 300 MG CAP PO SCH ×3 (06:17→22:30)
[2022-02-03 09:00] VITALS: BP_SYST 138; BP_SYST 165; BP_DIAS 68; BP_DIAS 83
[2022-02-03] MEDS: HYDROcodone-ACET 5/325MG TAB PO PRN ×3 (10:19→22:32)
[2022-02-03] MEDS: levETIRAcetam 500 MG TAB PO SCH ×2 (10:19→22:29)
[2022-02-03 13:00] VITALS: BP 124/84
[2022-02-03 16:51] VITALS: BP 126/81
[2022-02-03 22:00] VITALS: BP 119/75
[2022-02-03] MEDS: AMITRIPTYLINE HCL 25 MG TAB PO SCH (22:29)
[2022-02-04 05:00] VITALS: BP 150/74
[2022-02-04] MEDS: GABAPENTIN 300 MG CAP PO SCH ×3 (05:34→22:17)
[2022-02-04] MEDS: SODIUM CHLOR 0.9% PF (SALINE LOCK) 10ML VIAL/SYR IV SCH ×3 (05:34→22:00)
[2022-02-04] MEDS: HYDROcodone-ACET 5/325MG TAB PO PRN ×2 (08:37→16:58)
[2022-02-04 09:00] VITALS: BP_SYST 110; BP_SYST 111; BP_DIAS 67; BP_DIAS 68
[2022-02-04] MEDS: levETIRAcetam 500 MG TAB PO SCH ×2 (09:15→22:17)
[2022-02-04 13:00] VITALS: BP_SYST 103; BP_SYST 119; BP_DIAS 61; BP_DIAS 99
[2022-02-04] MEDS: ENOXAPARIN SOD 40 MG/0.4 ML SYRINGE SC SCH (14:15)
[2022-02-04 17:02] VITALS: BP 124/78
[2022-02-04 20:00] VITALS: BP 110/70
[2022-02-04 22:00] VITALS: BP 110/70
[2022-02-04] MEDS: AMITRIPTYLINE HCL 25 MG TAB PO SCH (22:17)
[2022-02-05 05:00] VITALS: BP 102/73
[2022-02-05 05:21] LABS: Basophils # (auto) 0 10 ^3/uL (0-0.2); Basophils % (auto) 0.5 % (0.0-2.0); Hemoglobin 9.7 g/dL (12.2-16.2); Lymphocytes # (auto) 1.6 10 ^3/uL (0.4-5.4)
[2022-02-05 05:24] LABS: Eosinophils # (auto) 0.2 10 ^3/uL (0-0.8); Eosinophils % (auto) 2.8 % (0.0-7.0); Hematocrit 29.9 % (36.0-46.0); Mean Corpuscular Hgb Conc. 32.6 g/dL (32.0-36.0); Mean Corpuscular Volume 79.8 fL (80.0-100.0); Monocytes # (auto) 0.8 10 ^3/uL (0-1.3); Monocytes % (auto) 12.9 % (0.0-12.0); Neutrophils # (auto) 3.5 10 ^3/uL (1.6-8.6); Neutrophils % (auto) 57.8 % (37.0-80.0); Nucleated Red Blood Cells % 0.1 %; Red Blood Cells 3.75 10^6/uL (4.0-5.20); Red Cell Distribution Width 18.3 % (11.8-14.3)
[2022-02-05 05:41] LABS: BUN/Creatinine Ratio 24.5; Calcium 8.5 mg/dL (8.5-10.1); Magnesium 2.1 mg/dL (1.6-2.6); Potassium 4.1 mmol/L (3.5-5.1)
[2022-02-05] MEDS: SODIUM CHLOR 0.9% PF (SALINE LOCK) 10ML VIAL/SYR IV SCH ×3 (06:00→21:49)
[2022-02-05] MEDS: GABAPENTIN 300 MG CAP PO SCH ×3 (06:14→21:49)
[2022-02-05] MEDS: HYDROcodone-ACET 5/325MG TAB PO PRN ×2 (08:29→20:57)
[2022-02-05 09:00] VITALS: BP 98/65
[2022-02-05] MEDS: levETIRAcetam 500 MG TAB PO SCH ×2 (10:26→21:49)
[2022-02-05] MEDS: ENOXAPARIN SOD 40 MG/0.4 ML SYRINGE SC SCH (10:27)
[2022-02-05 13:04] VITALS: BP 103/63
[2022-02-05 16:53] VITALS: BP 112/71
[2022-02-05 20:00] VITALS: BP 120/75
[2022-02-05] MEDS: AMITRIPTYLINE HCL 25 MG TAB PO SCH (21:49)
[2022-02-05 22:00] VITALS: BP 120/75
[2022-02-06 05:00] VITALS: BP 111/71
[2022-02-06] MEDS: SODIUM CHLOR 0.9% PF (SALINE LOCK) 10ML VIAL/SYR IV SCH ×3 (06:00→22:00)
[2022-02-06] MEDS: GABAPENTIN 300 MG CAP PO SCH ×3 (06:07→22:43)
[2022-02-06 09:00] VITALS: BP 121/77
[2022-02-06] MEDS: ENOXAPARIN SOD 40 MG/0.4 ML SYRINGE SC SCH (10:13)
[2022-02-06] MEDS: levETIRAcetam 500 MG TAB PO SCH ×2 (10:13→22:43)
[2022-02-06] MEDS: HYDROcodone-ACET 5/325MG TAB PO PRN ×3 (10:24→22:43)
[2022-02-06 13:00] VITALS: BP 133/71
[2022-02-06 16:51] VITALS: BP 138/85
[2022-02-06 22:00] VITALS: BP 134/78
[2022-02-06] MEDS: AMITRIPTYLINE HCL 25 MG TAB PO SCH (22:42)
[2022-02-07 05:00] VITALS: BP 116/74
[2022-02-07] MEDS: SODIUM CHLOR 0.9% PF (SALINE LOCK) 10ML VIAL/SYR IV SCH ×3 (06:00→21:53)
[2022-02-07] MEDS: GABAPENTIN 300 MG CAP PO SCH ×3 (06:22→21:53)
[2022-02-07] MEDS: HYDROcodone-ACET 5/325MG TAB PO PRN ×4 (06:23→18:37)
[2022-02-07 09:00] VITALS: BP 148/88
[2022-02-07] MEDS: ENOXAPARIN SOD 40 MG/0.4 ML SYRINGE SC SCH (10:12)
[2022-02-07] MEDS: levETIRAcetam 500 MG TAB PO SCH ×2 (10:12→21:53)
[2022-02-07 13:00] VITALS: BP 138/88
[2022-02-07 16:51] VITALS: BP 127/75
[2022-02-07] MEDS: AMITRIPTYLINE HCL 25 MG TAB PO SCH (21:53)
[2022-02-07 22:00] VITALS: BP 106/67
[2022-02-08 05:00] VITALS: BP 120/73
[2022-02-08] MEDS: GABAPENTIN 300 MG CAP PO SCH (07:31)
[2022-02-08] MEDS: SODIUM CHLOR 0.9% PF (SALINE LOCK) 10ML VIAL/SYR IV SCH (07:31)
[2022-02-08 09:00] VITALS: BP 123/75
[2022-02-08] MEDS: levETIRAcetam 500 MG TAB PO SCH (09:50)
[2022-02-08] MEDS: ENOXAPARIN SOD 40 MG/0.4 ML SYRINGE SC SCH (09:50)
== END 2022-02-08 11:44 | disposition home or self-care (01) | DRG 53 ==
LOC: ER 19:08 → EDBD 19:08 → OVERFLOW 01-21 04:07 → TELE-WESTW 01-21 21:08 → WEST WING 01-31 15:25
PROVIDERS: ADMIT Nurse Practitioner Family; ATTEND Internal Medicine
DX: G40.409 Other generalized epilepsy and epileptic syndromes, not intractable, without status epilepticus (principal); U07.1 COVID-19; R45.851 Suicidal ideations; E88.09 Other disorders of plasma-protein metabolism, not elsewhere classified; F32.A Depression, unspecified; F12.10 Cannabis abuse, uncomplicated; G43.B0 Ophthalmoplegic migraine, not intractable; E87.6 Hypokalemia; F17.200 Nicotine dependence, unspecified, uncomplicated; F43.10 Post-traumatic stress disorder, unspecified; G43.109 Migraine with aura, not intractable, without status migrainosus; G44.40 Drug-induced headache, not elsewhere classified, not intractable; I10 Essential (primary) hypertension; G89.29 Other chronic pain; Z82.3 Family history of stroke; Z91.410 Personal history of adult physical and sexual abuse; Z81.8 Family history of other mental and behavioral disorders; Z88.0 Allergy status to penicillin
CPT/HCPCS: 36415; 70450; 71045; 80048; 80053; 80307; 80320; 81001; 83735; 84484; 84702; 85025; 85610; 85730; 93005; 95819; 96365; 97110; 97116; 97163; 97530; G0378; J3480; J7042; J7060

== ENCOUNTER 2022-02-22 11:23 | Inpatient (IN) | payer MEDICAID ==
[~2022-02-22] VITALS: Ht 157.5 cm; Wt 104.5 kg
[~2022-02-22 11:23] MED LIST changes: -ESCI20TA PO; +FLUO20CA90 PO; +FLUT0.05 NAS; +FURO40TA4 PO; +GABA-339 PO; +HYDR-4902 PO; +LEVE500T3 PO; -MELO1TAB56 PO; +ONDA-144 PO; +POTA-220 PO
[2022-02-22] MEDS ORDERED: SODIUM CHLORIDE 0.9% 1,000 ML IV ONE (11:45)
[2022-02-22 12:45] LABS: Basophils # (auto) 0 10 ^3/uL (0-0.2); Eosinophils # (auto) 0.1 10 ^3/uL (0-0.8); Monocytes # (auto) 0.5 10 ^3/uL (0-1.3); White Blood Cell 4.4 10^3/uL (4.4-10.8)
[2022-02-22 12:49] LABS: Basophils % (auto) 0.5 % (0.0-2.0); Eosinophils % (auto) 2.9 % (0.0-7.0); Hematocrit 32.5 % (36.0-46.0); Hemoglobin 10.1 g/dL (12.2-16.2); Lymphocytes # (auto) 1.3 10 ^3/uL (0.4-5.4); Lymphocytes % (auto) 29.7 % (10.0-50.0); Mean Corpuscular Hemoglobin 25.2 pg (28.0-32.0); Mean Corpuscular Hgb Conc. 31.1 g/dL (32.0-36.0); Monocytes % (auto) 10.5 % (0.0-12.0); Neutrophils # (auto) 2.5 10 ^3/uL (1.6-8.6); Neutrophils % (auto) 56.4 % (37.0-80.0); Red Blood Cells 4.01 10^6/uL (4.0-5.20); Red Cell Distribution Width 17.8 % (11.8-14.3)
[2022-02-22 12:53] LABS: Potassium 4.1 mmol/L (3.5-5.1)
[2022-02-22 12:59] LABS: Albumin 3.3 g/dL (3.4-5.0); BUN/Creatinine Ratio 34.7; Bilirubin, Total 0.2 mg/dL (0.2-1.0); Calcium 8.9 mg/dL (8.5-10.1); Total Protein 6.6 g/dL (6.4-8.2)
[2022-02-22] MEDS ORDERED: levETIRAcetam 500 MG TAB PO ONE (22:00)
[2022-02-22] MEDS ORDERED: GABAPENTIN 300 MG CAP PO ONE (22:00)
[2022-02-23] MEDS ORDERED: HYDROcodone-ACET 10/325MG TAB PO ONE (02:15)
[2022-02-23] MEDS ORDERED: GABAPENTIN 300 MG CAP PO ONE (08:45)
[2022-02-23] MEDS ORDERED: levETIRAcetam 500 MG TAB PO ONE (08:45)
[2022-02-25] MEDS ORDERED: MORPHINE SULFATE INJ 2 MG/ml SYRG IV PRN ×2 (13:45→23:00)
[2022-02-25] MEDS ORDERED: LORazepam 2MG/ML-1ML VIAL IV PRN ×2 (13:45→23:00)
[2022-02-25] MEDS ORDERED: NITROGLYCERIN 0.4 MG SL TAB SL PRN ×2 (13:45→23:00)
[2022-02-25 14:05] LABS: Eosinophils # (auto) 0.1 10 ^3/uL (0-0.8); Hemoglobin 10.6 g/dL (12.2-16.2); Lymphocytes # (auto) 1.1 10 ^3/uL (0.4-5.4); White Blood Cell 5.5 10^3/uL (4.4-10.8)
[2022-02-25 14:07] LABS: Basophils # (auto) 0 10 ^3/uL (0-0.2); Basophils % (auto) 0.8 % (0.0-2.0); Eosinophils % (auto) 2.1 % (0.0-7.0); Hematocrit 33.8 % (36.0-46.0); Lymphocytes % (auto) 20.7 % (10.0-50.0); Mean Corpuscular Hemoglobin 25.2 pg (28.0-32.0); Mean Corpuscular Hgb Conc. 31.4 g/dL (32.0-36.0); Mean Corpuscular Volume 80.4 fL (80.0-100.0); Monocytes # (auto) 0.6 10 ^3/uL (0-1.3); Monocytes % (auto) 10.5 % (0.0-12.0); Neutrophils # (auto) 3.6 10 ^3/uL (1.6-8.6); Neutrophils % (auto) 65.9 % (37.0-80.0); Nucleated Red Blood Cells % 0.1 %; Red Blood Cells 4.21 10^6/uL (4.0-5.20); Red Cell Distribution Width 17.9 % (11.8-14.3)
[2022-02-25 14:22] LABS: Albumin 3.4 g/dL (3.4-5.0); BUN/Creatinine Ratio 35.3; Calcium 8.4 mg/dL (8.5-10.1); Potassium 4.1 mmol/L (3.5-5.1)
[2022-02-25 14:25] LABS: Bilirubin, Total 0.2 mg/dL (0.2-1.0); Total Protein 6.5 g/dL (6.4-8.2)
[2022-02-25 16:42] LABS: Alcohol, Urine < 3.0 mg/dL (0-10); Amphetamine Screen, Urine NEGATIVE (NEGATIVE); Barbiturate Scree,Urine NEGATIVE (NEGATIVE); Benzodiazephine Screen, Urine NEGATIVE (NEGATIVE); Cannabinoid Screen, Urine POSITIVE (NEGATIVE); Cocaine Screen, Urine NEGATIVE (NEGATIVE); Opiate Scree,Urine NEGATIVE (NEGATIVE); Phencyclidine Screen, Urine NEGATIVE (NEGATIVE)
[2022-02-25 16:44] LABS: Urine Bacteria FEW /hpf (None Seen); Urine Blood Negative /uL (Negative); Urine Mucus FEW (None Seen); Urine Specific Gravity 1.026 (1.001-1.035); Urine WBC 15 /hpf (0 - 5)
[2022-02-25 22:00] VITALS: BP 156/75
[2022-02-25] MEDS ORDERED: levETIRAcetam 500 MG TAB PO SCH (22:00)
[2022-02-25] MEDS ORDERED: TOPIRAMATE 25 MG TAB PO SCH (22:00)
[2022-02-25] MEDS ORDERED: PATIENTS OWN MEDICATION (Gabapentin 600 MG) PO SCH (22:00)
[2022-02-26 05:00] VITALS: BP 129/74
[2022-02-26 06:25] LABS: Basophils # (auto) 0 10 ^3/uL (0-0.2); Mean Corpuscular Volume 79.3 fL (80.0-100.0); Monocytes # (auto) 0.6 10 ^3/uL (0-1.3); Monocytes % (auto) 10.3 % (0.0-12.0)
[2022-02-26 06:27] LABS: Basophils % (auto) 0.7 % (0.0-2.0); Eosinophils # (auto) 0.1 10 ^3/uL (0-0.8); Eosinophils % (auto) 2.4 % (0.0-7.0); Hematocrit 32.4 % (36.0-46.0); Hemoglobin 10.5 g/dL (12.2-16.2); Lymphocytes # (auto) 1.5 10 ^3/uL (0.4-5.4); Lymphocytes % (auto) 26.6 % (10.0-50.0); Mean Corpuscular Hemoglobin 25.7 pg (28.0-32.0); Mean Corpuscular Hgb Conc. 32.4 g/dL (32.0-36.0); Neutrophils # (auto) 3.4 10 ^3/uL (1.6-8.6); Red Blood Cells 4.09 10^6/uL (4.0-5.20); Red Cell Distribution Width 17.3 % (11.8-14.3); White Blood Cell 5.6 10^3/uL (4.4-10.8)
[2022-02-26 06:39] LABS: Potassium 3.8 mmol/L (3.5-5.1)
[2022-02-26] MEDS: GABAPENTIN 300 MG CAP PO SCH ×3 (06:41→22:19)
[2022-02-26 06:45] LABS: Albumin 3.2 g/dL (3.4-5.0); BUN/Creatinine Ratio 35.2; Calcium 8.4 mg/dL (8.5-10.1)
[2022-02-26 07:00] LABS: Bilirubin, Total 0.2 mg/dL (0.2-1.0); Total Protein 6.2 g/dL (6.4-8.2)
[2022-02-26 09:00] VITALS: BP 108/60
[2022-02-26] MEDS ORDERED: levETIRAcetam 500 MG TAB PO SCH (10:00)
[2022-02-26] MEDS ORDERED: ENOXAPARIN SOD 40 MG/0.4 ML SYRINGE SC SCH (10:00)
[2022-02-26] MEDS: ENOXAPARIN SOD 40 MG/0.4 ML SYRINGE SC SCH (10:09)
[2022-02-26] MEDS: TOPIRAMATE 25 MG TAB PO SCH ×2 (10:09→22:20)
[2022-02-26 13:00] VITALS: BP 127/72
[2022-02-26] MEDS: CEFEPIME 1GM/ 50ML 50 ML IV SCH ×2 (16:59→22:21)
[2022-02-26 17:59] VITALS: BP 108/56
[2022-02-26] MEDS: IBUPROFEN 800 MG TAB PO PRN (19:55)
[2022-02-26 22:00] VITALS: BP 125/76
[2022-02-26] MEDS: levETIRAcetam 500 MG TAB PO SCH (22:18)
[2022-02-27] VITALS (7 sets, daily range): BP systolic 110–134; BP diastolic 64–76
[2022-02-27] MEDS: CEFEPIME 1GM/ 50ML 50 ML IV SCH (06:02)
[2022-02-27] MEDS: GABAPENTIN 300 MG CAP PO SCH ×3 (06:02→20:06)
[2022-02-27] MEDS: levETIRAcetam 500 MG TAB PO SCH ×2 (08:51→20:06)
[2022-02-27] MEDS: TOPIRAMATE 25 MG TAB PO SCH ×2 (08:51→20:06)
[2022-02-27] MEDS: ENOXAPARIN SOD 40 MG/0.4 ML SYRINGE SC SCH (08:51)
[2022-02-27] MEDS ORDERED: FLUoxetine HCL 20 MG CAP PO SCH (10:00)
[2022-02-27] MEDS: IBUPROFEN 800 MG TAB PO PRN (11:59)
[2022-02-27] MEDS ORDERED: cefTRIAXone 1GM/50ML D5W 50 ML IV ONE (14:00)
[2022-02-28] MEDS ORDERED: cefTRIAXone 1GM/50ML D5W 50 ML IV SCH (09:00)
== END 2022-02-27 21:36 | DRG 53 ==
LOC: EDBD 11:23 → ER 11:23 → UNDOADMIN 13:51 → TELE-WESTW 13:51 → TELE 02-24 13:00 → UNDOADMIN 02-24 13:00 → TELE-WESTW 02-25 13:51 → TELE 02-25 20:15 → TELE-WESTW 02-25 20:15
PROVIDERS: ADMIT Registered Nurse; ATTEND Hospitalist
DX: G40.909 Epilepsy, unspecified, not intractable, without status epilepticus (principal); E66.01 Morbid (severe) obesity due to excess calories; F12.10 Cannabis abuse, uncomplicated; F32.A Depression, unspecified; N39.0 Urinary tract infection, site not specified; F41.9 Anxiety disorder, unspecified; R80.9 Proteinuria, unspecified; I10 Essential (primary) hypertension; Z20.822 Contact with and (suspected) exposure to COVID-19; Z87.891 Personal history of nicotine dependence; Z68.41 Body mass index [BMI] 40.0-44.9, adult; Z88.0 Allergy status to penicillin; Z82.3 Family history of stroke
CPT/HCPCS: 36415; 70450; 71045; 80053; 80307; 81001; 82542; 84484; 85025; 87081; 93005; 93970; 96360; 97163; G0378; J0696